=== PATIENT | female | born 1955 | race Caucasian/White ===

== ENCOUNTER 2019-05-22 19:24 | Inpatient (IN) | payer OTHER, SELFPAY ==
[~2019-05-22 19:24] MED LIST: Iopamidol-370 76% 500 ML 1 ML ONE
[2019-05-22] MEDS ORDERED: Morphine 4 MG/ML VIAL ONE (19:47)
[2019-05-22] MEDS ORDERED: Adacel (T-DAP) 0.5 ML SYRINGE ONE (19:47)
[2019-05-22] MEDS ORDERED: CEFAZOLIN 1 GM VIAL ONE (19:47)
[2019-05-22 19:57] LABS: Hemoglobin 14.4 g/dL (12.0-16.0); Mean Corpuscular HGB CONC 33.7 g/dL (32.0-36.0); Mean Corpuscular Hemoglobin 30.3 pg (27.0-31.0); RBC Distribution Width 12.9 % (11.5-14.5); Red Blood Cell (RBC) Count 4.76 mill/uL (4.20-5.40); White Blood Cell (WBC) Count 24.4 thou/uL (4.8-10.8)
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
[2019-05-22 20:12] LABS: Band 10 % (5-11); Lymphocytes 23 % (21-51); Monocytes 2 % (0-10); Neutrophil 63 % (42-75); Platelet Morphology Comment Appears Adequate; RBC Morphology Normal; Reactive Lymphocytes 2 % (0-10)
[2019-05-22 20:17] LABS: ALT (SGPT) 60 U/L (8-55); AST (SGOT) 62 U/L (5-34); Albumin 3.8 g/dL (3.4-4.8); Alkaline Phosphatase 52 U/L (40-110); Anion Gap 17 mmol/L (10-20); BUN (Urea Nitrogen) 16 mg/dL (9.8-20.1); Bilirubin, Total 0.4 mg/dL (0.2-1.2); Calc. Creatinine Clearance 0 mL/min (70-130); Calcium 8.3 mg/dL (7.8-10.44); Carbon Dioxide 21 mmol/L (23-31); Chloride 103 mmol/L (98-107); Estimated GFR-MDRD 70; Globulin 2.6 g/dL (2.4-3.5); Glucose 257 mg/dL (80-115); Lipase 46 U/L (8-78); Potassium 3.9 mmol/L (3.5-5.1); Protein, Total 6.4 g/dL (6.0-8.3); Sodium 137 mmol/L (136-145)
[2019-05-22 20:23] LABS: #Basophils 0.1 thou/uL (0.0-0.2); #Eosinphils 0.1 thou/uL (0.0-0.7); #Lymphocytes 2.1 thou/uL (1.20-3.40); #Monocytes 1.2 thou/uL (0.11-0.59); #Neutrophils 18.7 thou/uL (1.40-6.50); %Basophils 0.5 % (0.0-1.0); %Eosinophils 0.4 % (0.0-10.0); %Lymphocytes 9.3 % (21.0-51.0); %Monocytes 5.3 % (0.0-10.0); %Neutrophils 84.5 % (42.0-75.0); Platelet Count 122 thou/uL (130-400)
[2019-05-22 20:24] LABS: MDiff Complete? YES
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
[2019-05-22 20:33] LABS: INR-International Normal Ratio 1.1; PTT 17.7 SEC (22.9-36.1); Prothrombin Time 13.7 SEC (12.0-14.7)
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
[2019-05-22 21:11] LABS: Pregnancy Test - Urine (BHCG) Negative (Negative); Pregu Control Background? CLEAR/WHITE (CLR/WHITE); Pregu Control Bar Appear? YES (CONTROL BAR); Specific Gravity Greater than 1.060 (1.002-1.036)
[2019-05-22 21:13] LABS: Bacteria/HPF 3+ HPF (None Seen); Bilirubin Negative (Negative); Blood, Urine Trace (Negative); Clarity Clear (Clear); Glucose, Urine (Dipstick) 300 mg/dL (Negative); Leukocyte 250 Leu/uL (Negative); Nitrite 2+ (Negative); Protein, Urine (Dipstick) 30 mg/dL (Neg-Trace); RBC/HPF 21-50 HPF (0-3); Urobilinogen Normal mg/dL (Less than 2)
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
[2019-05-22] MEDS ORDERED: Lidocaine 1% w/Epinephrine 1:100K 20 ML VIAL ONE (21:38)
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
[2019-05-22] MEDS ORDERED: Ketorolac Tromethamine 30 MG/ML VIAL ONE (23:05)
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
[2019-05-23] MEDS ORDERED: Ondansetron PF 4 MG/2 ML Vial IVP PRN (00:42)
[2019-05-23] MEDS ORDERED: Insulin Regular 300 UNITS/3 ML VIAL SC PRN (00:42)
[2019-05-23] MEDS ORDERED: hydrALAZINE 20 MG/ML VIAL SLOW IVP PRN (00:42)
[2019-05-23] MEDS ORDERED: Dextrose 50% Abboject 50 ML SYRINGE SLOW IVP PRN (00:42)
[2019-05-23] MEDS ORDERED: Dextrose 5% in Water 1,000 ML IV PRN (00:42)
[2019-05-23] MEDS ORDERED: traMADol HCl 50 MG TAB PO PRN (00:42)
[2019-05-23] MEDS ORDERED: Ondansetron ODT 4 MG TAB PO PRN (00:42)
[2019-05-23 00:48] VITALS: BMI 36.3
[2019-05-23] MEDS ORDERED: Ketorolac Tromethamine 30 MG/ML VIAL IVP SCH (01:00)
[2019-05-23] MEDS: cefTRIAXone\\ROCEPHIN 1 GM in Sodium Chloride 0.9% 100 ML IVPB SCH (01:11)
[2019-05-23] MEDS: traMADol HCl 50 MG TAB PO PRN ×3 (01:12→17:59)
[2019-05-23] MEDS: Cyclobenzaprine 10 MG TAB PO PRN ×2 (01:12→17:59)
[2019-05-23 05:49] LABS: #Basophils 0.1 thou/uL (0.0-0.2); #Lymphocytes 1.7 thou/uL (1.20-3.40); #Neutrophils 8.7 thou/uL (1.40-6.50); %Basophils 0.6 % (0.0-1.0); %Eosinophils 0.4 % (0.0-10.0); %Lymphocytes 14.8 % (21.0-51.0); %Monocytes 8.9 % (0.0-10.0); %Neutrophils 75.3 % (42.0-75.0); Mean Corpuscular Hemoglobin 29.8 pg (27.0-31.0); Mean Corpuscular Volume 90.3 fL (78.0-98.0); Mean Platelet Volume 10.8 fL (7.4-10.4); Platelet Count 125 thou/uL (130-400); RBC Distribution Width 12.8 % (11.5-14.5); Red Blood Cell (RBC) Count 4.01 mill/uL (4.20-5.40); White Blood Cell (WBC) Count 11.6 thou/uL (4.8-10.8)
[2019-05-23] MEDS ORDERED: Acetaminophen 325 MG TAB PO SCH (06:00)
[2019-05-23 06:06] LABS: Anion Gap 13 mmol/L (10-20); BUN (Urea Nitrogen) 17 mg/dL (9.8-20.1); Calc. Creatinine Clearance 122 mL/min (70-130); Calcium 7.6 mg/dL (7.8-10.44); Carbon Dioxide 23 mmol/L (23-31); Chloride 103 mmol/L (98-107); Estimated GFR-MDRD 83; Glucose 276 mg/dL (80-115); Magnesium 1.8 mg/dL (1.6-2.6); Phosphorus 4.4 mg/dL (2.3-4.7); Sodium 135 mmol/L (136-145)
[2019-05-23] MEDS: Ibuprofen 600 MG TAB PO SCH ×3 (06:53→20:52)
[2019-05-23] MEDS: Insulin Regular 300 UNITS/3 ML VIAL SC PRN ×2 (06:53→11:09)
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
[2019-05-23] MEDS: Famotidine 20 MG TAB PO SCH ×2 (07:59→20:52)
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
[2019-05-23] MEDS ORDERED: Gabapentin 300 MG CAP PO SCH (10:30)
[2019-05-23] MEDS ORDERED: Morphine 2 MG/ML SYRINGE SLOW IVP SCH (10:45)
[2019-05-23] MEDS: Acetaminophen 500 MG TAB PO SCH ×2 (11:06→17:04)
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
[2019-05-23] MEDS: HumaLOG 300 UNITS/3 ML VIAL SC SCH ×2 (17:04→20:54)
[2019-05-23] MEDS: Gabapentin 300 MG CAP PO SCH (20:53)
[2019-05-24] MEDS: Acetaminophen 500 MG TAB PO SCH ×4 (00:05→20:44)
[2019-05-24] MEDS: cefTRIAXone\\ROCEPHIN 1 GM in Sodium Chloride 0.9% 100 ML IVPB SCH (00:06)
[2019-05-24] MEDS: Sodium Chloride 0.9% 1,000 ML IV SCH ×2 (00:07→10:11)
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
[2019-05-24] MEDS: Ibuprofen 600 MG TAB PO SCH ×3 (05:58→20:13)
[2019-05-24] MEDS: Levothyroxine Sodium 100 MCG TAB PO SCH (05:59)
[2019-05-24] MEDS: HumaLOG 300 UNITS/3 ML VIAL SC SCH (06:02)
[2019-05-24] MEDS ORDERED: Midazolam HCl 2 mg/2 ml Vial ONE (08:18)
[2019-05-24] MEDS ORDERED: Fentanyl 100 MCG/2 ML VIAL ONE ×2 (08:18→08:48)
[2019-05-24] MEDS ORDERED: CEFAZOLIN 2 GM in Premix Bag 1 BAG IVPB SCH (08:45)
[2019-05-24] MEDS ORDERED: Ropivacaine HCl/PF 250 ML in Premix Bag 1 BAG NERVE BLCK SCH (08:50)
[2019-05-24] MEDS ORDERED: Promethazine HCl 25 MG/ML VIAL IM PRN ×2 (08:50→10:18)
[2019-05-24] MEDS ORDERED: Acetaminophen 325 MG TAB PO PRN (08:50)
[2019-05-24] MEDS ORDERED: Zolpidem Tartrate 5 MG TAB PO PRN (08:50)
[2019-05-24] MEDS ORDERED: traMADol HCl 50 MG TAB PO PRN ×2 (08:50)
[2019-05-24] MEDS ORDERED: HYDROcodone/Acetaminophen 10/325 mg Tablet PO PRN (08:50)
[2019-05-24] MEDS ORDERED: HumaLOG 300 UNITS/3 ML VIAL SC PRN (09:00)
[2019-05-24] MEDS ORDERED: Ketorolac Tromethamine 30 MG/ML VIAL ONE (09:51)
[2019-05-24] MEDS ORDERED: Lidocaine 1% PF 5 ML VIAL ONE (09:51)
[2019-05-24] MEDS ORDERED: Ondansetron PF 4 MG/2 ML Vial ONE (09:51)
[2019-05-24] MEDS ORDERED: PROPOFOL 200 MG/20 ML VIAL ONE (09:51)
[2019-05-24] MEDS ORDERED: Rocuronium Bromide 10 MG/ML (10ML VIAL) ONE (09:51)
[2019-05-24] MEDS ORDERED: Dexamethasone 20 MG/5 ML VIAL ONE (09:51)
[2019-05-24] MEDS ORDERED: PHENYLEPHRINE-NS 100 MCG/ML 10 ML SYRINGE ONE (09:51)
[2019-05-24] MEDS ORDERED: Ropivacaine 0.5% HCl/PF (150 MG/30 ML VIAL) ONE (09:53)
[2019-05-24] MEDS ORDERED: Promethazine HCl 25 MG/ML VIAL SLOW IVP PRN (10:18)
[2019-05-24] MEDS ORDERED: Ondansetron HCl/PF 4 MG/2 ML Vial IVP PRN (10:18)
--- NOTE | 2019-05-24 11:02 | RAD ---
EXAM: Right shoulder: 2 views INDICATIONS: Open reduction internal fixation right shoulder. Operative imaging. Fluoroscopic images are presented. COMPARISON: None. FINDINGS: Internal fixation with plate and screws to the proximal humerus.
[2019-05-24] MEDS ORDERED: Ketorolac Tromethamine 30 MG/ML VIAL IVP SCH (12:00)
[2019-05-24] MEDS ORDERED: Morphine 4 MG/ML VIAL SLOW IVP PRN (12:21)
[2019-05-24] MEDS ORDERED: Morphine 2 MG/ML SYRINGE SLOW IVP PRN (12:21)
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
[2019-05-24] MEDS: Gabapentin 300 MG CAP PO SCH ×2 (13:26→20:13)
[2019-05-24] MEDS: Atorvastatin Calcium 40 MG TAB PO SCH (13:26)
[2019-05-24] MEDS: Famotidine 20 MG TAB PO SCH ×2 (13:26→20:13)
[2019-05-24] MEDS: Ergocalciferol 1.25 MG(50,000 UNITS) CAP PO SCH (13:37)
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
[2019-05-24] MEDS: HYDROcodone/Acetaminophen 10/325 mg Tablet PO PRN (19:37)
[2019-05-24] MEDS: CEFAZOLIN 2 GM in Premix Bag 1 BAG IVPB SCH ×2 (19:39→23:30)
[2019-05-24] MEDS ORDERED: Insulin Regular 300 UNITS/3 ML VIAL SC PRN ×2 (20:37)
--- NOTE | 2019-05-24 21:50 | RAD ---
XR Femur Rt 2 View STANDARD HISTORY: Right thigh pain COMPARISON: None. FINDINGS: There are arthritic changes of the hip and knee. Vascular calcifications are noted. There a re no signs of any fracture or acute bony findings. IMPRESSION: No acute findings.
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
[2019-05-25] MEDS: CEFAZOLIN 2 GM in Premix Bag 1 BAG IVPB SCH (01:26)
[2019-05-25] MEDS: Ibuprofen 600 MG TAB PO SCH ×3 (05:02→21:23)
[2019-05-25] MEDS: Levothyroxine Sodium 100 MCG TAB PO SCH (05:02)
[2019-05-25] MEDS: HYDROcodone/Acetaminophen 10/325 mg Tablet PO PRN (07:00)
[2019-05-25 08:35] LABS: #Eosinphils 0.1 thou/uL (0.0-0.7); #Lymphocytes 1.9 thou/uL (1.20-3.40); #Monocytes 0.7 thou/uL (0.11-0.59); #Neutrophils 7.7 thou/uL (1.40-6.50); %Basophils 0.1 % (0.0-1.0); %Eosinophils 0.7 % (0.0-10.0); %Lymphocytes 18.7 % (21.0-51.0); %Monocytes 6.2 % (0.0-10.0); %Neutrophils 74.3 % (42.0-75.0); Hemoglobin 10.6 g/dL (12.0-16.0); Mean Corpuscular HGB CONC 33.1 g/dL (32.0-36.0); Mean Corpuscular Hemoglobin 30.5 pg (27.0-31.0); Mean Corpuscular Volume 92.2 fL (78.0-98.0); Platelet Count 113 thou/uL (130-400); RBC Distribution Width 13.1 % (11.5-14.5); Red Blood Cell (RBC) Count 3.47 mill/uL (4.20-5.40); White Blood Cell (WBC) Count 10.4 thou/uL (4.8-10.8)
[2019-05-25 08:45] LABS: Anion Gap 13 mmol/L (10-20); BUN (Urea Nitrogen) 9 mg/dL (9.8-20.1); Calc. Creatinine Clearance 133 mL/min (70-130); Calcium 7.9 mg/dL (7.8-10.44); Carbon Dioxide 25 mmol/L (23-31); Chloride 102 mmol/L (98-107); Estimated GFR-MDRD Greater than 90; Glucose 169 mg/dL (80-115); Magnesium 1.9 mg/dL (1.6-2.6); Phosphorus 2.5 mg/dL (2.3-4.7); Sodium 136 mmol/L (136-145)
[2019-05-25] MEDS: Gabapentin 300 MG CAP PO SCH ×2 (08:48→21:23)
[2019-05-25] MEDS: Lisinopril 20 MG TAB PO SCH (08:48)
[2019-05-25] MEDS: Atorvastatin Calcium 40 MG TAB PO SCH (08:49)
[2019-05-25] MEDS: metFORMIN 500 MG TAB PO SCH ×2 (08:49→16:36)
[2019-05-25] MEDS: Ergocalciferol 1.25 MG(50,000 UNITS) CAP PO SCH (08:49)
[2019-05-25] MEDS: Famotidine 20 MG TAB PO SCH (08:50)
[2019-05-25] MEDS ORDERED: SUB Q INSULIN DEVICE SC SCH (09:00)
[2019-05-25] MEDS ORDERED: Enoxaparin Sodium 40 MG/0.4 ML SYRINGE SC SCH (09:00)
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
[2019-05-25] MEDS ORDERED: Magnesium Oxide 250 MG TAB PO SCH (11:30)
[2019-05-25] MEDS ORDERED: PHOS-NAK 1 PKT PACK PO SCH (11:30)
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
[2019-05-25] MEDS: Insulin Regular 300 UNITS/3 ML VIAL SC PRN ×3 (12:13→21:27)
[2019-05-25] MEDS ORDERED: Furosemide 40 MG/4 ML VIAL SLOW IVP SCH (12:45)
--- NOTE | 2019-05-25 12:49 | RAD ---
Chest AP view INDICATION: Code patient COMPARISON: Prior exam dated May 22, 2019 FINDINGS: Lungs:There is perihilar edema Cardiac silhouette:There is moderate cardiomegaly Pulmonary vasculature:There is prominent pulmonary vascular congestion Pleural spaces:There are bilateral pleural effusions. No pneumothorax Upper abdomen:Pacer pads overlie the upper abdomen. Osseous structures: There is partial visualization of instrumentation placed across the proximal righ t humerus fracture previously seen on the prior exam. Additional findings:None. IMPRESSION: Findings suspicious for moderate CHF.
[2019-05-25] MEDS ORDERED: Sodium Chloride 0.9% 1,000 ML IV SCH ×2 (13:00)
[2019-05-25 13:24] LABS: Troponin I 0.011 ng/mL (< 0.028)
[2019-05-25] MEDS: Acetaminophen 500 MG TAB PO SCH ×2 (14:15→19:45)
[2019-05-25] MEDS: Fentanyl 100 MCG/2 ML VIAL IV PRN ×2 (14:16→15:29)
[2019-05-25] MEDS: traMADol HCl 50 MG TAB PO SCH (17:41)
[2019-05-25] MEDS: Ampicillin/Sulbactam 1.5 GM in Sodium Chloride 0.9% 100 ML IVPB SCH (17:42)
[2019-05-26] MEDS: Acetaminophen 500 MG TAB PO SCH ×5 (00:14→23:55)
[2019-05-26] MEDS: traMADol HCl 50 MG TAB PO SCH ×5 (00:15→23:54)
[2019-05-26] MEDS: Ampicillin/Sulbactam 1.5 GM in Sodium Chloride 0.9% 100 ML IVPB SCH ×3 (00:16→12:09)
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
[2019-05-26 04:00] LABS: Band 4 % (5-11); Hemoglobin 9.7 g/dL (12.0-16.0); Lymphocytes 9 % (21-51); MDiff Complete? YES; Mean Corpuscular HGB CONC 32.6 g/dL (32.0-36.0); Mean Corpuscular Hemoglobin 29.4 pg (27.0-31.0); Mean Corpuscular Volume 90.2 fL (78.0-98.0); Mean Platelet Volume 9.9 fL (7.4-10.4); Monocytes 5 % (0-10); Neutrophil 82 % (42-75); Platelet Count 105 thou/uL (130-400); Platelet Morphology Comment Appears Adequate; Red Blood Cell (RBC) Count 3.29 mill/uL (4.20-5.40); White Blood Cell (WBC) Count 6.7 thou/uL (4.8-10.8)
[2019-05-26 04:14] LABS: Anion Gap 12 mmol/L (10-20); BUN (Urea Nitrogen) 12 mg/dL (9.8-20.1); Calc. Creatinine Clearance 133 mL/min (70-130); Calcium 7.5 mg/dL (7.8-10.44); Carbon Dioxide 27 mmol/L (23-31); Chloride 103 mmol/L (98-107); Estimated GFR-MDRD Greater than 90; Glucose 199 mg/dL (80-115); Magnesium 2.4 mg/dL (1.6-2.6); Phosphorus 3.2 mg/dL (2.3-4.7); Potassium 3.7 mmol/L (3.5-5.1); Sodium 138 mmol/L (136-145)
[2019-05-26] MEDS: Ibuprofen 600 MG TAB PO SCH ×3 (05:41→21:34)
[2019-05-26] MEDS: Levothyroxine Sodium 100 MCG TAB PO SCH (05:42)
[2019-05-26] MEDS: Insulin Regular 300 UNITS/3 ML VIAL SC PRN ×2 (05:59→12:24)
--- NOTE | 2019-05-26 08:49 | RAD ---
CHEST 1 VIEW: INDICATION: History of pneumonia. COMPARISON: Prior exam 05/25/2019. FINDINGS: Cardiomegaly and pulmonary vascular congestion persist. There is improved aeration of both lower lob es on today's evaluation with resolution of the subsegmental atelectasis. No enoch pneumothorax is e vident. Tiny pleural effusions persist. IMPRESSION: Some improved aeration of both lungs with resolution of the bibasilar atelectasis. Moderate cardiome oneida with pulmonary vascular congestion remains with small bilateral pleural effusions. POS: GIORGIO
[2019-05-26] MEDS ORDERED: Clopidogrel Bisulfate 75 MG TAB PO SCH (09:00)
[2019-05-26] MEDS ORDERED: SUB Q INSULIN DEVICE SC SCH (09:00)
[2019-05-26] MEDS: metFORMIN 500 MG TAB PO SCH ×2 (09:34→17:05)
[2019-05-26] MEDS: Cyclobenzaprine 10 MG TAB PO PRN ×2 (09:36→17:06)
[2019-05-26] MEDS: Atorvastatin Calcium 40 MG TAB PO SCH (09:36)
[2019-05-26] MEDS: Clopidogrel Bisulfate 75 MG TAB PO SCH (09:36)
[2019-05-26] MEDS: Lisinopril 20 MG TAB PO SCH (09:36)
[2019-05-26] MEDS: Gabapentin 300 MG CAP PO SCH ×3 (09:36→21:34)
[2019-05-26] MEDS: Ergocalciferol 1.25 MG(50,000 UNITS) CAP PO SCH (09:40)
[2019-05-26] MEDS ORDERED: guaiFENesin 100 MG/5 ML UDCUP PO SCH (10:00)
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
[2019-05-26] MEDS: Diabetic Tussin 200 MG/10 ML UDCUP PO SCH ×3 (12:28→23:55)
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
[2019-05-26] MEDS: Ondansetron PF 4 MG/2 ML Vial IVP PRN (15:06)
[2019-05-26] MEDS: Amoxicillin/Potassium Clav 875 MG TAB PO SCH (21:34)
[2019-05-26] MEDS: Melatonin 3 MG TAB PO SCH (21:34)
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
[2019-05-27] MEDS: traMADol HCl 50 MG TAB PO PRN ×2 (00:08→20:33)
[2019-05-27] MEDS: Ondansetron PF 4 MG/2 ML Vial IVP PRN (00:44)
[2019-05-27] MEDS ORDERED: Furosemide 40 MG/4 ML VIAL SLOW IVP SCH (01:30)
[2019-05-27 05:45] LABS: Hemoglobin 9.8 g/dL (12.0-16.0); Mean Corpuscular HGB CONC 33.5 g/dL (32.0-36.0); Mean Corpuscular Volume 89.5 fL (78.0-98.0); Mean Platelet Volume 9.1 fL (7.4-10.4); Platelet Count 130 thou/uL (130-400); Red Blood Cell (RBC) Count 3.26 mill/uL (4.20-5.40); White Blood Cell (WBC) Count 8.1 thou/uL (4.8-10.8)
[2019-05-27 05:46] LABS: Band 6 % (5-11); Hypochromia SLIGHT = 6-15 cells (100X) (0-5/hpf); Lymphocytes 10 % (21-51); MDiff Complete? YES; Monocytes 1 % (0-10); Neutrophil 83 % (42-75); Platelet Morphology Comment Appears Adequate
[2019-05-27 05:59] LABS: Anion Gap 11 mmol/L (10-20); BUN (Urea Nitrogen) 10 mg/dL (9.8-20.1); Calc. Creatinine Clearance 127 mL/min (70-130); Calcium 7.8 mg/dL (7.8-10.44); Carbon Dioxide 31 mmol/L (23-31); Chloride 95 mmol/L (98-107); Estimated GFR-MDRD 87; Glucose 197 mg/dL (80-115); Magnesium 1.7 mg/dL (1.6-2.6); Phosphorus 3.5 mg/dL (2.3-4.7); Potassium 3.5 mmol/L (3.5-5.1); Sodium 133 mmol/L (136-145)
[2019-05-27] MEDS: Diabetic Tussin 200 MG/10 ML UDCUP PO SCH ×3 (06:09→17:54)
[2019-05-27] MEDS: Ibuprofen 600 MG TAB PO SCH ×3 (06:09→21:56)
[2019-05-27] MEDS: Levothyroxine Sodium 100 MCG TAB PO SCH (06:09)
[2019-05-27] MEDS: traMADol HCl 50 MG TAB PO SCH ×3 (06:10→17:48)
[2019-05-27] MEDS: Insulin Regular 300 UNITS/3 ML VIAL SC PRN ×4 (06:12→23:04)
[2019-05-27] MEDS ORDERED: PHOS-NAK 1 PKT PACK PO SCH (07:00)
[2019-05-27] MEDS ORDERED: Magnesium Oxide 250 MG TAB PO SCH (07:00)
[2019-05-27] MEDS: Acetaminophen 500 MG TAB PO SCH ×3 (07:14→17:14)
[2019-05-27] MEDS ORDERED: Potassium Chloride 20 MEQ TAB PO SCH (07:45)
--- NOTE | 2019-05-27 08:03 | RAD ---
Chest AP view INDICATION: Respiratory distress COMPARISON: Chest radiograph dated 05/26/2019 and 05/25/2019 FINDINGS: Lungs:There is some residual linear type opacities in the right lower lobe suspicious for residual martin bsegmental volume loss. Cardiac silhouette:Mild cardiomegaly is stable. Pulmonary vasculature:Pulmonary vascular congestion has improved from 05/17/2019 and 05/26/2019. Pleural spaces:No pleural effusion or pneumothorax is demonstrated. Upper abdomen:No abnormality seen. Osseous structures: Instrumentation of the right humerus fracture is again partially visualized. Additional findings:None. IMPRESSION: Some residual linear type opacities in the right lower lobe suspicious for residual atele ctasis or pneumonia. Continued follow-up is recommended. Cardiomegaly is stable. Pulmonary vascular congestion has improved.
[2019-05-27] MEDS: Gabapentin 300 MG CAP PO SCH ×3 (09:00→20:34)
[2019-05-27] MEDS ORDERED: Senokot S 8.6-50 MG TAB PO SCH (09:00)
[2019-05-27] MEDS: Amoxicillin/Potassium Clav 875 MG TAB PO SCH ×2 (09:01→20:34)
[2019-05-27] MEDS: Clopidogrel Bisulfate 75 MG TAB PO SCH (09:01)
[2019-05-27] MEDS: Atorvastatin Calcium 40 MG TAB PO SCH (09:01)
[2019-05-27] MEDS: metFORMIN 500 MG TAB PO SCH ×2 (09:07→17:14)
[2019-05-27] MEDS ORDERED: Magnesium 2 GM/50 ML 2 GM in Premix Bag 1 BAG IVPB ONE (09:15)
[2019-05-27] MEDS: Polyethylene Glycol 3350 17 GM Packet PO SCH (11:01)
[2019-05-27] MEDS: Ergocalciferol 1.25 MG(50,000 UNITS) CAP PO SCH (13:41)
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
[2019-05-27] MEDS: Melatonin 3 MG TAB PO SCH (20:35)
[2019-05-27] MEDS: Senokot S 8.6-50 MG TAB PO SCH (20:35)
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
[2019-05-28] MEDS: Acetaminophen 500 MG TAB PO SCH ×5 (00:08→23:50)
[2019-05-28] MEDS: traMADol HCl 50 MG TAB PO SCH ×3 (00:08→21:05)
[2019-05-28] MEDS: Diabetic Tussin 200 MG/10 ML UDCUP PO SCH ×4 (01:34→18:03)
[2019-05-28 05:12] LABS: Anion Gap 13 mmol/L (10-20); BUN (Urea Nitrogen) 12 mg/dL (9.8-20.1); Calc. Creatinine Clearance 139 mL/min (70-130); Carbon Dioxide 30 mmol/L (23-31); Chloride 96 mmol/L (98-107); Estimated GFR-MDRD Greater than 90; Glucose 156 mg/dL (80-115); Phosphorus 4.2 mg/dL (2.3-4.7); Potassium 3.6 mmol/L (3.5-5.1); Sodium 135 mmol/L (136-145)
[2019-05-28 05:19] LABS: Band 9 % (5-11); Eosinophils 1 % (0-10); Hemoglobin 9.6 g/dL (12.0-16.0); Lymphocytes 15 % (21-51); MDiff Complete? YES; Mean Corpuscular HGB CONC 34.5 g/dL (32.0-36.0); Mean Corpuscular Hemoglobin 31.1 pg (27.0-31.0); Monocytes 5 % (0-10); Myelocyte 1 % (0-0); Neutrophil 69 % (42-75); Platelet Count 140 thou/uL (130-400); RBC Distribution Width 13.1 % (11.5-14.5); Red Blood Cell (RBC) Count 3.08 mill/uL (4.20-5.40); White Blood Cell (WBC) Count 6.7 thou/uL (4.8-10.8)
[2019-05-28] MEDS: Ibuprofen 600 MG TAB PO SCH ×3 (05:47→21:05)
[2019-05-28] MEDS: Levothyroxine Sodium 100 MCG TAB PO SCH (05:47)
[2019-05-28] MEDS: Insulin Regular 300 UNITS/3 ML VIAL SC PRN ×2 (05:52→12:35)
[2019-05-28] MEDS: metFORMIN 500 MG TAB PO SCH ×2 (08:32→17:55)
[2019-05-28] MEDS: Gabapentin 300 MG CAP PO SCH (08:33)
[2019-05-28] MEDS: Atorvastatin Calcium 40 MG TAB PO SCH (08:34)
[2019-05-28] MEDS: Ergocalciferol 1.25 MG(50,000 UNITS) CAP PO SCH (08:34)
[2019-05-28] MEDS: Amoxicillin/Potassium Clav 875 MG TAB PO SCH ×2 (08:34→21:05)
[2019-05-28] MEDS: Clopidogrel Bisulfate 75 MG TAB PO SCH (08:35)
[2019-05-28] MEDS: Polyethylene Glycol 3350 17 GM Packet PO SCH (08:41)
[2019-05-28] MEDS: Lisinopril 20 MG TAB PO SCH (08:41)
[2019-05-28] MEDS: Senokot S 8.6-50 MG TAB PO SCH ×2 (08:42→21:06)
[2019-05-28] MEDS ORDERED: Gabapentin 300 MG CAP PO SCH (15:00)
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
[2019-05-28] MEDS ORDERED: Gabapentin 100 MG CAP PO SCH (16:00)
[2019-05-28] MEDS: Gabapentin 100 MG CAP PO SCH (21:05)
[2019-05-28] MEDS: Melatonin 3 MG TAB PO SCH (21:05)
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
[2019-05-29] MEDS: Diabetic Tussin 200 MG/10 ML UDCUP PO SCH ×4 (02:01→18:15)
[2019-05-29] MEDS: Levothyroxine Sodium 100 MCG TAB PO SCH (05:55)
[2019-05-29] MEDS: Acetaminophen 500 MG TAB PO SCH ×3 (05:55→18:12)
[2019-05-29] MEDS: Insulin Regular 300 UNITS/3 ML VIAL SC PRN ×3 (05:56→18:13)
[2019-05-29] MEDS: Ibuprofen 600 MG TAB PO SCH ×3 (05:56→21:10)
[2019-05-29] MEDS: Amoxicillin/Potassium Clav 875 MG TAB PO SCH ×2 (09:30→21:12)
[2019-05-29] MEDS: Ergocalciferol 1.25 MG(50,000 UNITS) CAP PO SCH (09:30)
[2019-05-29] MEDS: Lisinopril 20 MG TAB PO SCH (09:31)
[2019-05-29] MEDS: Clopidogrel Bisulfate 75 MG TAB PO SCH (09:32)
[2019-05-29] MEDS: Gabapentin 100 MG CAP PO SCH ×3 (09:32→21:12)
[2019-05-29] MEDS: Atorvastatin Calcium 40 MG TAB PO SCH (09:33)
[2019-05-29] MEDS: traMADol HCl 50 MG TAB PO SCH ×2 (09:33→21:10)
[2019-05-29] MEDS: metFORMIN 500 MG TAB PO SCH ×2 (09:34→18:12)
[2019-05-29] MEDS: Senokot S 8.6-50 MG TAB PO SCH ×2 (09:38→21:12)
[2019-05-29] MEDS: Polyethylene Glycol 3350 17 GM Packet PO SCH (09:38)
--- NOTE | 2019-05-29 10:18 | PRG ---
DATE OF SERVICE: 05/29/2019 SUBJECTIVE: Lisa is a 63-year-old female, who is postop day #5 from a right proximal humerus open reduction and internal fixation for three-part proximal humerus fracture. She is doing relatively well. She is able to independently transfer from bed to chair. She is ambulating 400 feet and her pain is very well controlled. OBJECTIVE: Her incisions are clean, they were inspected yesterday, redressed. No varus or valgus deformity. She is neurovascularly intact in the right upper extremity. She is also wearing a walking boot on the right lower extremity. IMPRESSION: Postop day #5, 63-year-old female, for right three-part proximal humeral fracture, status post open reduction and internal fixation. PLAN: The patient is very desirous to return home at this point. She would like to be discharged and I will discuss this with Trauma Team and express her desires and concerns with them. Job ID: [id number]
[2019-05-29] MEDS ORDERED: Scopolamine 1.5 mg/72 hour Patch TD SCH (13:30)
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
[2019-05-29] MEDS: Melatonin 3 MG TAB PO SCH (21:11)
[2019-05-30] MEDS: Diabetic Tussin 200 MG/10 ML UDCUP PO SCH ×4 (00:06→18:23)
[2019-05-30] MEDS: Acetaminophen 500 MG TAB PO SCH ×4 (00:06→18:23)
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
[2019-05-30] MEDS: Ibuprofen 600 MG TAB PO SCH ×3 (05:50→21:18)
[2019-05-30] MEDS: Levothyroxine Sodium 100 MCG TAB PO SCH (05:50)
[2019-05-30] MEDS: metFORMIN 500 MG TAB PO SCH ×2 (08:56→18:23)
[2019-05-30] MEDS: Amoxicillin/Potassium Clav 875 MG TAB PO SCH ×2 (09:01→21:18)
[2019-05-30] MEDS: Atorvastatin Calcium 40 MG TAB PO SCH (09:02)
[2019-05-30] MEDS: Gabapentin 100 MG CAP PO SCH ×3 (09:02→21:18)
[2019-05-30] MEDS: Ergocalciferol 1.25 MG(50,000 UNITS) CAP PO SCH (09:02)
[2019-05-30] MEDS: Clopidogrel Bisulfate 75 MG TAB PO SCH (09:02)
[2019-05-30] MEDS: Lisinopril 20 MG TAB PO SCH (09:03)
[2019-05-30] MEDS: traMADol HCl 50 MG TAB PO SCH ×2 (09:05→21:19)
[2019-05-30] MEDS: Polyethylene Glycol 3350 17 GM Packet PO SCH (09:07)
[2019-05-30] MEDS: Senokot S 8.6-50 MG TAB PO SCH ×2 (09:08→21:18)
[2019-05-30] MEDS: Insulin Regular 300 UNITS/3 ML VIAL SC PRN (11:49)
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
[2019-05-30] MEDS: Melatonin 3 MG TAB PO SCH (21:18)
--- NOTE | 2019-05-30 23:54 | EKG ---
Test Reason : CODE GREEN Blood Pressure : / mmHG Vent. Rate : 131 BPM Atrial Rate : 131 BPM P-R Int : 160 ms QRS Dur : 092 ms QT Int : 282 ms P-R-T Axes : 048 068 061 degrees QTc Int : 416 ms Sinus tachycardia Nonspecific ST abnormality Abnormal ECG When compared with ECG of 22-MAY-2019 20:08, (Unconfirmed) No significant change was found Confirmed by Bernardino THOMPSON ([id number]) on 05/30/2019 11:54:20 PM Referred By: LV MARTINEZ Confirmed By:Bernardino THOMPSON
[2019-05-31] MEDS: Acetaminophen 500 MG TAB PO SCH ×3 (00:01→12:49)
[2019-05-31] MEDS: Diabetic Tussin 200 MG/10 ML UDCUP PO SCH ×4 (00:02→17:51)
[2019-05-31] MEDS: Levothyroxine Sodium 100 MCG TAB PO SCH (06:11)
[2019-05-31] MEDS: Ibuprofen 600 MG TAB PO SCH ×2 (06:12→14:16)
[2019-05-31] MEDS: Insulin Regular 300 UNITS/3 ML VIAL SC PRN ×2 (06:19→12:50)
[2019-05-31] MEDS: Senokot S 8.6-50 MG TAB PO SCH (08:05)
[2019-05-31] MEDS: Polyethylene Glycol 3350 17 GM Packet PO SCH ×2 (08:05→08:25)
[2019-05-31] MEDS: metFORMIN 500 MG TAB PO SCH ×2 (08:06→17:51)
[2019-05-31] MEDS: Ergocalciferol 1.25 MG(50,000 UNITS) CAP PO SCH (08:07)
[2019-05-31] MEDS: Amoxicillin/Potassium Clav 875 MG TAB PO SCH (08:07)
[2019-05-31] MEDS: Gabapentin 100 MG CAP PO SCH ×2 (08:07→14:16)
[2019-05-31] MEDS: Atorvastatin Calcium 40 MG TAB PO SCH (08:08)
[2019-05-31] MEDS: traMADol HCl 50 MG TAB PO SCH (08:08)
[2019-05-31] MEDS: Clopidogrel Bisulfate 75 MG TAB PO SCH (08:08)
[2019-05-31] MEDS ORDERED: SEMAGLUTIDE SC SCH (09:00)
[2019-05-31] MEDS: Lisinopril 20 MG TAB PO SCH (09:05)
[2019-05-31 15:24] VITALS: BP 148/76; TEMP 98
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
== END 2019-05-31 18:00 | disposition home or self-care (01) | DRG 492 ==
LOC: ERS 19:24 → SURG A 05-23 00:20 → CCU 05-25 15:07 → SJJU 05-26 18:21
PROVIDERS: ADMIT Surgery; ATTEND Surgery
PROC: 0JQG0ZZ Repair Right Lower Arm Subcutaneous Tissue and Fascia, Open Approach (ICD-10-PCS; 2019-05-23)
PROC: 0JQN0ZZ Repair Right Lower Leg Subcutaneous Tissue and Fascia, Open Approach (ICD-10-PCS; 2019-05-23)
PROC: 0PSC04Z Reposition Right Humeral Head with Internal Fixation Device, Open Approach (ICD-10-PCS; principal; 2019-05-24)
DX: S42.231A 3-part fracture of surgical neck of right humerus, initial encounter for closed fracture (principal); J18.9 Pneumonia, unspecified organism; S22.41XA Multiple fractures of ribs, right side, initial encounter for closed fracture; N39.0 Urinary tract infection, site not specified; J98.11 Atelectasis; S92.351A Displaced fracture of fifth metatarsal bone, right foot, initial encounter for closed fracture; S51.811A Laceration without foreign body of right forearm, initial encounter; S81.811A Laceration without foreign body, right lower leg, initial encounter; E11.9 Type 2 diabetes mellitus without complications; E03.9 Hypothyroidism, unspecified; I10 Essential (primary) hypertension; F17.210 Nicotine dependence, cigarettes, uncomplicated; R09.02 Hypoxemia; I25.10 Atherosclerotic heart disease of native coronary artery without angina pectoris; R06.03 Acute respiratory distress; V44.6XXA Car passenger injured in collision with heavy transport vehicle or bus in traffic accident, initial encounter; Y92.415 Exit ramp or entrance ramp of street or highway as the place of occurrence of the external cause; Z79.890 Hormone replacement therapy; Z79.4 Long term (current) use of insulin; Z79.01 Long term (current) use of anticoagulants; Z79.899 Other long term (current) drug therapy; Z95.5 Presence of coronary angioplasty implant and graft; E66.01 Morbid (severe) obesity due to excess calories; Z68.36 Body mass index [BMI] 36.0-36.9, adult
CPT/HCPCS: 12034; 29105; 36415; 36416; 70450; 71045; 71260; 72125; 74177; 76000; 80048; 80053; 81003; 81015; 81025; 82550; 83690; 83735; 83880; 84100; 84145; 84484; 85007; 85025; 85027; 85610; 85730; 86850; 86900; 86901; 87040; 87070; 87205; 90471; 90715; 93005; 93010; 94640; 94660; 94760; 96365; 96375; C1713; C1758; G0390; J0295; J0360; J0690; J0696; J1100; J1650; J1815; J1885; J1940; J2001; J2250; J2270; J2405; J2704; J2795; J3010; J3475; J3490; J7620; Q0162; Q9967

== ENCOUNTER 2019-06-15 14:04 | Outpatient (CLI) | payer OTHER ==
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
== END 2019-06-15 14:05 | disposition home or self-care (01) ==
LOC: BICULT 14:04
PROVIDERS: ATTEND Physician Assistant Surgical
DX: M79.89 Other specified soft tissue disorders (principal); F17.200 Nicotine dependence, unspecified, uncomplicated